=== PATIENT | female | born 1990 | race Caucasian/White ===

== ENCOUNTER 2016-09-18 18:00 | Inpatient (IN) | payer BC ==
--- NOTE | ~2016-09-18 | CR72 ---
[facility] A Service of [facility] RADIOLOGY TEXT RESULTS PATIENT: DANYA MONTOYA LOCATION: [place] [address] : [birth year] UNIT #: [id number] AGE: [address]: Sathya Winchester III, MD SEX: F ORDER DR: [id number] [facility] [address] [place], [place] [address] [id number] I MR#: [id number] #: [id number] NAME: DANYA MONTOYA : 1990 SEX: F STUDY DATE/TIME: 09/19/2016 14:27 UNIT: [facility] ROOM: [facility] STUDY DESCRIPTION: CR Chest Single View Portable Attending Physician: Sathya Winchester III, M.D. Ordering Physician: Lopez Chapin M.D. Primary Care Physician: Self Referral-Refer Use Only MEDICAL IMAGING REPORT This report is preliminary unless electronic signature is present EXAM Portable chest x-ray 09/19/2016 HISTORY Asthma. Status post appendectomy. Symptoms began today. Short of air. AP radiograph of the chest in lordotic projection presented. FINDINGS Heart and mediastinum normal in size and contour. Lung volumes normal. There is no evidence of acute infectious or inflammatory disease, pleural effusion or pneumothorax. No suspicious nodule. Visualized bowel gas pattern in upper abdomen within normal limits. No acute appearing bony abnormality. Dictated by... Robert Amin M.D. THIS IS AN ELECTRONICALLY VERIFIED REPORT Robert Amin M.D. at 09/20/2016 2:14 PM Daisy TD: 09/19/2016 16:14 JOB #: [id number] MEDICAL IMAGING REPORT Page 1 of 1 COPY
--- NOTE | ~2016-09-18 | OR ---
Unit #: [id number] #: [id number] Patient: DANYA MONTOYA [id number] [address] [address] [id number] Juan C MR#: [id number] NAME: DANYA MONTOYA ROOM: 476 Date of Procedure: 09/18/2016 Admission Date: 09/18/2016 Surgeon: Sathya Winchester III, M.D. : 1990 Attending Physician: Sathya Winchester III, M.D. Primary Care Physician: Self Referral-Refer Use Only OPERATIVE REPORT PREOPERATIVE DIAGNOSIS Ruptured appendicitis. POSTOPERATIVE DIAGNOSIS Ruptured appendicitis. PROCEDURES PERFORMED Diagnostic laparoscopy with open appendectomy. ANESTHESIA General. SPECIMENS Appendix to pathology. COMPLICATIONS None apparent. ESTIMATED BLOOD LOSS Less than 20 mL. DRAINS One flat Damon-White drain was placed. INDICATIONS FOR PROCEDURE This is a 26-year-old lady, who presented with right lower quadrant pain for 3 days and had evidence of acute appendicitis with perforation. She was extremely uncomfortable and had a white blood count of 19,000. She was transferred to [facility] for appendectomy. DESCRIPTION OF PROCEDURE After consent was obtained, the patient was brought to the operating room and placed in the supine position. General anesthetic was administered and her abdomen was prepped and draped in standard surgical fashion. I made a 1 cm incision just above the umbilicus. I elevated the fascia between 2 Adryan clamps and used a Veress needle to obtain CO2 pneumoperitoneum. Next, a 5-mm trocar was placed in that location. I then placed a second 5-mm trocar along the midline. I performed diagnostic laparoscopy and she had a lot of inflammatory changes and some signs of perforated appendicitis with oozing of enteric contents into the right lower quadrant. Because of these findings, I did elect to convert to an open procedure. I made a right lower quadrant incision and then Unit #: [id number] #: [id number] Patient: DANYA MONTOYA using a muscle-splitting technique, entered the peritoneal cavity. I was able to easily elevate the base of the cecum. The base of the cecum seen relatively unaffected by this process. There was a perforation of the appendix approximately 1 cm away from the base of the appendix. I was able to ligate the base of the appendix and divided. I then oversewed this with interrupted 2-0 silk sutures. I irrigated copiously the right lower quadrant. The appendix was sent to pathology. I placed a flat Damon-White drain in the right lower quadrant, brought it out through the suprapubic incision. After all needle, sponge, and instrument counts were correct x2 and hemostasis was excellent, I closed the peritoneum with a running 0 Vicryl suture. The anterior fascia that was then reapproximated with interrupted #1 Vicryl sutures. I then injected all the port sites with 0.25% plain Marcaine as well as the main incision. The incisions were reapproximated with a stapling device and the drain was secured to the level of skin with a 2-0 silk suture. She tolerated the procedure without any problems and returned to recovery room in stable condition. Dictated by... Sathya Winchester III, M.D. VCL/kd TD: 09/19/2016 23:24 JOB #: [id number] OPERATIVE REPORT Page 1 of 1 X Sathya Winchester III, MD PROCEDURE OPERATIVE NOTE
--- NOTE | ~2016-09-18 | DS ---
Unit #: [id number] #: [id number] Patient: DANYA MONTOYA [id number] [address] [address] [id number] I MR#: [id number] NAME: DANYA MONTOYA ROOM: 47 Age: 26 Sex: F Admission Date: 09/18/2016 : 1990 Discharge Date: 09/22/2016 Attending Physician: Sathya Winchester III, M.D. Primary Care Physician: Self Referral-Refer Use Only DISCHARGE SUMMARY DISCHARGE DIAGNOSES 1. Perforated appendicitis with pelvic abscess. 2. Asthmatic bronchitis. 3. Obesity. OPERATIVE PROCEDURE Attempted laparoscopy with open appendectomy and drainage of right lower quadrant abscess. HISTORY OF PRESENT ILLNESS AND HOSPITAL COURSE This is a 26-year-old white female who presented with right lower quadrant abdominal pain, transferred from [facility] to here with a diagnosis of perforated appendicitis with acute abscess formation periappendiceal. She was taken to surgery. Open appendectomy was performed per Dr. Winchester. The patient's right lower quadrant was drained. Successful appendectomy was performed. Postoperative course was mildly complicated by exacerbation of her asthmatic bronchitis for which Dr. Harinder Chapin was able to treat. The patient subsequently now on day number four is tolerating a regular diet. Dr. Chapin will see her before she is discharged but we have discharged her on oral antibiotics and pain medication including her home medications. We will see the patient back for followup in the office in about five to six days for staple removal. Dictated by... Heather Aguilar/jemima TD: 09/22/2016 16:38 JOB #: [id number] Unit #: [id number] #: [id number] Patient: DANYA MONTOYA DISCHARGE SUMMARY Page 1 of 1 X Jerry Dempsey MD X DISCHARGE SUMMARY
--- NOTE | ~2016-09-18 | CO ---
Unit #: [id number] #: [id number] Patient: DANYA MONTOYA [id number] [address] [place], [place] [address] [id number] I MR#: [id number] NAME: DANYA MONTOYA ROOM: 476 Age: 26 Sex: F Admission Date: 09/18/2016 : 1990 Attending Physician: Sathya Winchester III, M.D. Primary Care Physician: Self Referral-Refer Use Only Consultation Date: 09/19/2016 CONSULTATION REPORT HISTORY OF PRESENT ILLNESS Ms. Montoya is 26-year-old white female, who was admitted with right lower quadrant pain, found to have a ruptured appendix, underwent surgery with Dr. Winchester. She is noted to be somewhat more short of breath and wheezing. We were asked to see. She does have a history of asthma, but rarely uses a rescue inhaler. She is not on any inhaled steroids. She does smoke a half a pack of cigarettes a day. She has had no recent purulent sputum, cough, or congestion. Chest x-ray currently has not been done. CT scan of the abdomen and pelvis did not show anything in the lung bases. PAST MEDICAL HISTORY Significant for intrauterine device, history of kidney stones, history of asthma. PAST SURGICAL HISTORY No previous surgeries. ALLERGIES None known. MEDICATIONS None. SOCIAL HISTORY Smokes half a pack a day. Occasionally uses alcohol. No illicit drugs. FAMILY HISTORY Positive for lung cancer. REVIEW OF SYSTEMS CONSTITUTIONAL: No fever or chills. HEENT: No rhinorrhea or nasal congestion. PULMONARY: Has shortness of breath as noted, some wheezing, history of asthma. GI: As noted abdominal pain. : Has had some hematuria several years ago, evaluated by Urology and felt to be not a problem. ENDOCRINE: No polyuria or polydipsia. HEMATOLOGIC: No easy bruising or bleeding. SKIN: No rash. NEURO: No unilateral weakness or numbness. No seizures. No depression. She does have a history of loud snoring. She is somewhat fatigued during the day, but only sleeps 5-1/2 hours. Unit #: [id number] #: [id number] Patient: DANYA MONTOYA PHYSICAL EXAMINATION VITAL SIGNS: Blood pressure is 102/51, pulse is 101, respiratory rate is 18, afebrile. HEENT: Normocephalic and atraumatic. Pupils are equal, round, and reactive. Sclerae nonicteric. Nasal passages patent. Posterior pharynx crowded, Mallampati III. NECK: Supple. Mucous membranes moist. No cervical or supraclavicular lymphadenopathy. Trachea midline. LUNGS: Reveal mild expiratory wheeze bilaterally. CARDIAC: Heart sounds distant. Regular rate and rhythm. Could not appreciate murmur, rub, or gallop. ABDOMEN: Moderately tender, diminished. No bowel sounds. No hepatosplenomegaly. EXTREMITIES: Without clubbing, cyanosis, or edema. NEUROLOGIC: Awake and oriented x3. Cranial nerves grossly intact. Muscle strength symmetric. SKIN: Warm and dry. PSYCHIATRIC: Affect calm. DIAGNOSTIC STUDIES LABORATORY RESULTS: Reviewed. Glucose 132, creatinine 0.8, BUN 7, sodium 136, potassium 3.9. White count 15,600, hematocrit 36, platelet count normal. IMPRESSION 1. Asthma with some mild wheezing. 2. Ruptured appendix, status post open laparoscopy. 3. Obesity. PLAN Inhaled bronchodilators. Incentive spirometer. Check chest x-ray. SCDs for DVT prophylaxis. Further recommendations pending this. Dictated by... Lopez Chapin M.D. SCARLET/kd TD: 09/19/2016 23:49 JOB #: [id number] CONSULTATION REPORT Page 1 of 1 X Lopez Chapin MD X CONSULTATION REPORT
--- NOTE | ~2016-09-18 | HP ---
Unit #: [id number] #: [id number] Patient: DANYA MONTOYA [id number] [address] [place], [place] [address] [id number] I MR#: [id number] NAME: DANYA MONTOYA ROOM: 476 Age: 26 Sex: F Admission Date: 09/18/2016 : 1990 Attending Physician: Sathya Winchester III, M.D. Primary Care Physician: Self Referral-Refer Use Only HISTORY AND PHYSICAL CHIEF COMPLAINT Abdominal pain. HISTORY OF PRESENT ILLNESS This is a 26-year-old, lady who has had a 3-day history of right lower quadrant pain that has become progressively worse. She has had some episodes of nausea and vomiting. She denies any prior episodes of this kind of abdominal pain and denies any ill contacts or episodes of food poisoning. She initially presented to [facility] and had a CT scan, which showed perforated appendicitis. She was [facility] and apparently the plan was antibiotics with interval appendectomy down the road. The patient was writing in pain and the family was concerned about the treatment plan and contacted me because of my relationship with some other family members. She was transferred to [place] for definitive therapy. PAST SURGICAL HISTORY Significant for intrauterine device and she has a history of kidney stones. PAST MEDICAL HISTORY Negative. ALLERGIES She has no known drug allergies. MEDICATIONS She is on no medications. SOCIAL HISTORY She does occasionally smoke and uses alcohol occasionally. FAMILY HISTORY Negative for cancer. REVIEW OF SYSTEMS Negative for fevers, weight loss, or jaundice and is otherwise as above. PHYSICAL EXAMINATION VITAL SIGNS: Vitals were stable with the exception of a heart rate of 114. GENERAL APPEARANCE: She appears extremely uncomfortable. HEENT: Pupils are equal and reactive to light and accommodation and her extraocular muscles are intact. NECK: Without masses or bruits. LUNGS: Show good breath sounds bilaterally with equal air exchange. Unit #: [id number] #: [id number] Patient: DANYA MONTOYA CARDIAC: Shows regular rate and rhythm without murmur. ABDOMEN: Soft with 2-3+ tenderness in the right lower quadrant. EXTREMITIES: Without edema or cyanosis. NEUROLOGIC: She is alert and oriented. There are no focal deficits. DIAGNOSTIC STUDIES LABORATORY: White blood count is 19,000. IMAGING: CT scan, again, showed ruptured appendicitis. OVERALL IMPRESSION This is a 26-year-old lady with ruptured appendicitis. I feel like she needs to have diagnostic laparoscopy with possible open appendectomy. Also discussed the possibility of an ileocolic resection in case the appendix is completely blown out at the base of the cecum. We also discussed the risks of postoperative abscess and possible wound infection. She understands those and wishes to proceed. Dictated by Sathya Winchester III, M.D. VCL/pc TD: 09/19/2016 07:43 JOB #: [id number] HISTORY AND PHYSICAL Page 1 of 1 X Sathya Winchester III, MD X HISTORY AND PHYSICAL
[~2016-09-18 18:00] MED LIST: ALBUTEROL17 GM INH; ANTIBIOTIC; NEURONTIN PO; Z PACK
[2016-09-19 03:34] LABS: BASOPHIL% 0.1 % (0-2.5); HEMOGLOBIN 11.7 gm/dL (12.0-16.0); LYMPHOCYTE# 0.7 X10e3 (1.0-3.5); LYMPHOCYTE% 4.3 % (17.0-45.0); MEAN CELL VOLUME 79.8 FL (83-96); MEAN CORPUSCULAR HEMOGLOBIN 25.9 PG (28-34); MEAN CORPUSCULAR HGB CONC 32.5 g/dL (30-36); MEAN PLATELET VOLUME 9.5 FL (6.5-11.5); MONOCYTE# 0.8 X10e3 (0-1.0); MONOCYTE% 5.3 % (3.0-12.0); NEUTROPHIL# 14.1 X10e3 (1.5-7.1); NEUTROPHIL% 90.3 % (40-75); PLATELET COUNT 247 X10e3 (140-420); RED BLOOD COUNT 4.51 X10e (3.90-5.30); RED CELL DISTRIBUTION WIDTH 13.8 % (11.0-15.5); WHITE BLOOD COUNT 15.6 X10e3 (4.0-10.5)
[2016-09-19 03:35] LABS: DIFF IND YES
[2016-09-19 03:53] LABS: BUN/CREATININE RATIO 8.75; CALCIUM SERUM 8.1 mg/dL (8.4-10.2); CREATININE SERUM 0.8 mg/dL (0.6-1.4); GLOM FILT RATE Estimated 100.4 mL/min (>60); POTASSIUM 3.9 mmol/L (3.5-5.1)
[2016-09-19 04:25] LABS: PLATELET ESTIMATE NORMAL (NORMAL); RBC NORMAL YES
[2016-09-20 03:23] LABS: HEMATOCRIT 31.2 % (35.0-45.0); HEMOGLOBIN 10.4 gm/dL (12.0-16.0); MEAN CELL VOLUME 79.5 FL (83-96); MEAN CORPUSCULAR HEMOGLOBIN 26.5 PG (28-34); MEAN CORPUSCULAR HGB CONC 33.3 g/dL (30-36); MEAN PLATELET VOLUME 9.2 FL (6.5-11.5); RED BLOOD COUNT 3.93 X10e (3.90-5.30); RED CELL DISTRIBUTION WIDTH 13.6 % (11.0-15.5); WHITE BLOOD COUNT 10.9 X10e3 (4.0-10.5)
[2016-09-20 03:48] LABS: CALCIUM SERUM 8.1 mg/dL (8.4-10.2); CREATININE SERUM 0.6 mg/dL (0.6-1.4); POTASSIUM 3.2 mmol/L (3.5-5.1)
[2016-09-21 15:38] LABS: BASOPHIL% 0.2 % (0-2.5); EOSINOPHIL# 0.1 X10e3 (0-0.7); EOSINOPHIL% 0.5 % (0.0-7.0); HEMATOCRIT 30.9 % (35.0-45.0); HEMOGLOBIN 8.7 gm/dL (12.0-16.0); LYMPHOCYTE# 0.9 X10e3 (1.0-3.5); LYMPHOCYTE% 6.8 % (17.0-45.0); MEAN CELL VOLUME 80.8 FL (83-96); MEAN CORPUSCULAR HEMOGLOBIN 22.6 PG (28-34); MEAN PLATELET VOLUME 9.5 FL (6.5-11.5); MONOCYTE# 0.8 X10e3 (0-1.0); MONOCYTE% 5.6 % (3.0-12.0); NEUTROPHIL# 11.8 X10e3 (1.5-7.1); NEUTROPHIL% 86.9 % (40-75); PLATELET COUNT 292 X10e3 (140-420); RED BLOOD COUNT 3.83 X10e (3.90-5.30); WHITE BLOOD COUNT 13.6 X10e3 (4.0-10.5)
[2016-09-21 15:40] LABS: DIFF IND NO
[2016-09-21 15:44] LABS: BUN/CREATININE RATIO 8.33; CALCIUM SERUM 8.2 mg/dL (8.4-10.2); CREATININE SERUM 0.6 mg/dL (0.6-1.4); POTASSIUM 3.6 mmol/L (3.5-5.1)
[2016-09-22 03:03] LABS: BASOPHIL# 0.1 X10e3 (0-0.3); BASOPHIL% 0.8 % (0-2.5); EOSINOPHIL# 0.1 X10e3 (0-0.7); EOSINOPHIL% 0.8 % (0.0-7.0); HEMATOCRIT 31.5 % (35.0-45.0); HEMOGLOBIN 10.4 gm/dL (12.0-16.0); LYMPHOCYTE# 1.1 X10e3 (1.0-3.5); LYMPHOCYTE% 10.9 % (17.0-45.0); MEAN CELL VOLUME 78.4 FL (83-96); MEAN CORPUSCULAR HEMOGLOBIN 25.8 PG (28-34); MEAN CORPUSCULAR HGB CONC 32.9 g/dL (30-36); MONOCYTE# 0.7 X10e3 (0-1.0); MONOCYTE% 6.9 % (3.0-12.0); NEUTROPHIL# 7.9 X10e3 (1.5-7.1); NEUTROPHIL% 80.6 % (40-75); PLATELET COUNT 259 X10e3 (140-420); RED BLOOD COUNT 4.02 X10e (3.90-5.30); RED CELL DISTRIBUTION WIDTH 14.1 % (11.0-15.5); WHITE BLOOD COUNT 9.8 X10e3 (4.0-10.5)
[2016-09-22 03:04] LABS: DIFF IND NO
[2016-09-22 03:09] LABS: BUN/CREATININE RATIO 8.33; CALCIUM SERUM 7.9 mg/dL (8.4-10.2); CREATININE SERUM 0.6 mg/dL (0.6-1.4); MAGNESIUM 2.2 mg/dL (1.6-3.0)
[2016-09-23 03:37] LABS: POTASSIUM 3.7 mmol/L (3.5-5.1)
[2016-09-23] MEDS ORDERED: PROAIR HFA8.5 GM INH (07:42)
[2016-09-23] MEDS ORDERED: LORTAB 7.5-3251 EACH PO (07:44)
[2016-09-23] MEDS ORDERED: AUGMENTIN PO (07:45)
== END 2016-09-23 11:07 | disposition home or self-care (01) | DRG 339 ==
LOC: C4C 18:00
PROVIDERS: Internal Medicine; Surgery
PROC: 0DTJ0ZZ Resection of Appendix, Open Approach (ICD-10-PCS; principal; 2016-09-18 17:00)
PROC: 0DJD4ZZ Inspection of Lower Intestinal Tract, Percutaneous Endoscopic Approach (ICD-10-PCS; 2016-09-18 17:00)
DX: K35.3 Acute appendicitis with localized peritonitis (principal); J45.901 Unspecified asthma with (acute) exacerbation; Z87.442 Personal history of urinary calculi; E66.9 Obesity, unspecified; E87.6 Hypokalemia; Z68.30 Body mass index [BMI] 30.0-30.9, adult
CPT/HCPCS: 71010; 80048; 82947; 83735; 84132; 85025; 85027; 88304; 94640; 94760; J0330; J1100; J1650; J1885; J2250; J2270; J2405; J2543; J2550; J2710; J3010; J3475

== ENCOUNTER 2016-10-15 00:49 | Emergency (ER) | payer BC ==
--- NOTE | ~2016-10-15 | CR63 ---
[facility] A Service of [facility] RADIOLOGY TEXT RESULTS PATIENT: DANYA MONTOYA LOCATION: [facility] : [birth year] UNIT #: [id number] AGE: [address]: Walter Avila MD SEX: F ORDER DR: [id number] [facility] [address] [facility]. [place], [place] [address] [id number] MR#: [id number] Acc #: [id number] NAME: DANYA MONTOYA : 1990 SEX: F STUDY DATE/TIME: 10/15/2016 2:36 UNIT: [facility] ROOM: STUDY DESCRIPTION: CR Chest 2 View Attending Physician: Walter Avila M.D. Ordering Physician: Walter Avila M.D. Primary Care Physician: Self Referral-Refer Use Only MEDICAL IMAGING REPORT This report is preliminary unless electronic signature is present EXAM Two-view chest INDICATION Cough and fever for the past 3 days. PROCEDURE Frontal and lateral views of the chest COMPARISON 09/19/2016 FINDINGS Heart size is within normal limits. Lungs are clear. No pleural fluid. No pneumothorax. IMPRESSION No active process. Dictated by... Subhash Mullen M.D. THIS IS AN ELECTRONICALLY VERIFIED REPORT Subhash Mullen M.D. at 10/15/2016 9:52 PM Lee Ann TD: 10/15/2016 08:52 JOB #: [id number] MEDICAL IMAGING REPORT Page 1 of 1 COPY
[~2016-10-15 00:49] MED LIST changes: -ACETAMINOPHEN325 MG PO
[2016-10-15 02:38] LABS: URINE SOURCE CLEAN CATCH
[2016-10-15 02:44] LABS: URINE APPEARANCE CLEAR; URINE BILIRUBIN NEG (NEG); URINE BLOOD TRACE (NEG); URINE COLOR DK YELLOW; URINE GLUCOSE NEG (NEG); URINE KETONE TRACE (NEG); URINE LEUKOCYTE ESTERASE NEG (NEG); URINE NITRATE NEG (NEG); URINE PH 5.5 (5-8); URINE PROTEIN TRACE (NEG); URINE SPECIFIC GRAVITY 1.024 (1.003-1.035)
[2016-10-15 02:46] LABS: URINE BACTERIA AUWI NEG (NEGATIVE); URINE SQUAMOUS EPITHELIAL CELL NONE SEEN /[HPF]; UWBCS1 AUWI 0-2 (0-5)
[2016-10-15 02:47] LABS: CULTURE INDICATED? NO
== END 2016-10-15 03:23 | disposition home or self-care (01) ==
LOC: CED 00:49
PROVIDERS: Emergency Medicine
DX: J06.9 Acute upper respiratory infection, unspecified (principal)
CPT/HCPCS: 71020; 81003; 84703; 99283

== ENCOUNTER → 2016-10-15 | Outpatient (CLI) | payer BC ==
[~2016-10-15] MED LIST changes: +ACETAMINOPHEN325 MG PO; +AUGMENTIN PO; +LORTAB 7.5-3251 EACH PO; +PROAIR HFA8.5 GM INH
--- NOTE | ~2016-10-15 | CT2 ---
[facility] A Service of [facility] & [facility] RADIOLOGY TEXT RESULTS PATIENT: DANYA MONTOYA LOCATION: [facility] : [birth year] UNIT #: [id number] AGE: [address]: Sathya Winchester III, MD SEX: F ORDER DR: [id number] [facility] [address] [facility] [place], [place] [address] [id number] O MR#: [id number] Acc #: [id number] NAME: DANYA MONTOYA : 1990 SEX: F STUDY DATE/TIME: 10/15/2016 17:08 UNIT: [facility] ROOM: STUDY DESCRIPTION: CT Abd and Pelv W Cont Attending Physician: Sathya Winchester III, M.D. Referring Physician: Sathya Winchester III, M.D. Ordering Physician: Sathya Winchester III, M.D. Primary Care Physician: No Primary Care Physician MEDICAL IMAGING REPORT This report is preliminary unless electronic signature is present EXAM CT scan of the abdomen and pelvis with contrast, 10/15/16. HISTORY Nausea and fever, status post open appendectomy 09/18/16. Abdominal pain and discomfort extending across lower abdomen since 09/18/16. TECHNIQUE Spiral CT was performed through the abdomen and pelvis following oral and intravenous contrast administration. This CT exam was performed with one or more of the following radiation dose reduction techniques: automatic exposure control, adjustment of mA and/or kV according to patient size, and iterative reconstruction. FINDINGS ABDOMEN: The liver, spleen, pancreas, adrenal glands are normal. There are multiple fat-containing gallstones within the gallbladder lumen. There are nonobstructing renal stones bilaterally. PELVIS FINDINGS: There are postsurgical changes of recent appendectomy with residual postsurgical and inflammatory changes surrounding the cecum. Minimal thickening of the wall of the cecum is noted. The gut is otherwise unremarkable. There is however a 5.6 cm x 3.4 cm rim-enhancing fluid collection located in the pelvic cholecystitis. This does not contain gas but is concerning for abscess. Clinical correlation is recommended. There is a 2.1 cm presumed cystic lesion on the left ovary. This would be better evaluated with pelvic ultrasound. Images of the lung bases are normal. IMPRESSION 1. Postsurgical changes in the right lower quadrant of recent appendectomy. 2. There is a new 5.6 cm x 3.4 cm rim-enhancing fluid collection located [facility] A Service of [facility] & [facility] RADIOLOGY TEXT RESULTS PATIENT: DANYA MONTOYA LOCATION: [facility] : [birth year] UNIT #: [id number] AGE: [address]: Sathya Winchester III, MD SEX: F ORDER DR: in the pelvic cul-de-sac. The collection does not contain gas but is concerning for abscess. Clinical correlation is recommended. 3. 2.1 cm cystic lesion on the left ovary. Consider correlation with pelvic ultrasound. 4. Cholelithiasis. 5. Multiple nonobstructing renal stones bilaterally. STAT * RESULT Dictated by... Jared Yeboah M.D. THIS IS AN ELECTRONICALLY VERIFIED REPORT Jared Yeboah M.D. at 10/17/2016 8:20 AM PILAR/charbel TD: 10/15/2016 18:01 JOB #: [id number] MEDICAL IMAGING REPORT Page 1 of 1 COPY
[2016-10-15 16:10] LABS: HEMATOCRIT 36.6 % (35.0-45.0); HEMOGLOBIN 11.9 gm/dL (12.0-16.0); MEAN CORPUSCULAR HEMOGLOBIN 24.9 PG (28-34); MEAN CORPUSCULAR HGB CONC 32.4 g/dL (30-36); MEAN PLATELET VOLUME 8.2 FL (6.5-11.5); RED BLOOD COUNT 4.76 X10e (3.90-5.30); RED CELL DISTRIBUTION WIDTH 14.4 % (11.0-15.5); WHITE BLOOD COUNT 11.5 X10e3 (4.0-10.5)
== END | disposition home or self-care (01) ==
LOC: CCAT 15:00
PROVIDERS: Surgery
DX: R11.0 Nausea (principal); R50.9 Fever, unspecified; N83.8 Other noninflammatory disorders of ovary, fallopian tube and broad ligament; K80.20 Calculus of gallbladder without cholecystitis without obstruction; N20.0 Calculus of kidney; Z90.49 Acquired absence of other specified parts of digestive tract
CPT/HCPCS: 36415; 74177; 85027; Q9967

== ENCOUNTER 2016-10-16 08:00 | Inpatient (IN) | payer BC ==
--- NOTE | ~2016-10-16 | CT4 ---
[facility] A Service of [facility] RADIOLOGY TEXT RESULTS PATIENT: DANYA MONTOYA LOCATION: [facility] [id number] : [birth year] UNIT #: [id number] AGE: [address]: Sathya Winchester III, MD SEX: F ORDER DR: [id number] [facility] [address] [facility]. [place], [place] [address] [id number] I MR#: [id number] Acc #: [id number] NAME: DANYA MONTOYA : 1990 SEX: F STUDY DATE/TIME: 10/18/2016 13:09 UNIT: [facility] ROOM: [facility] STUDY DESCRIPTION: CT Abd and Pelv Wo Cont Attending Physician: Sathya Winchester III, M.D. Ordering Physician: Walter Harris M.D. Primary Care Physician: No Primary Care Physician MEDICAL IMAGING REPORT This report is preliminary unless electronic signature is present EXAM CT of the abdomen and pelvis without contrast. INDICATIONS Follow up abscess drain. Reevaluate abscess. Patient no longer has abdominal pain. TECHNIQUE CT of the abdomen and pelvis was performed without contrast. Coronal and sagittal reformatted images were obtained. This CT exam was performed with one or more of the following radiation dose reduction techniques: automatic exposure control, adjustment of mA and/or kV according to patient size, and iterative reconstruction. COMPARISON Comparison with 10/15/2016. FINDINGS The lung bases are clear. The liver is unremarkable. Cholelithiasis. The spleen is unremarkable. Punctate nonobstructing kidney stones bilaterally. The adrenal glands are unremarkable. The pancreas is unremarkable. No free fluid. PELVIS: There are postop changes from appendectomy are again noted. Stable stranding and prominent lymph nodes in the periappendiceal region. Interval placement of a pigtail drain into the pelvic cul-de-sac. No residual abscess. Remainder unremarkable. Bone windows are unremarkable. IMPRESSION Interval placement of a pigtail drain into the patient's abscess within the pelvic cul-de-sac. There is no evidence for any residual abscess. [facility] A Service of [facility] RADIOLOGY TEXT RESULTS PATIENT: DANYA MONTOYA LOCATION: [place] [address] : [birth year] UNIT #: [id number] AGE: [address]: Sathya Winchester III, MD SEX: F ORDER DR: Dictated by... Avery Leach M.D. THIS IS AN ELECTRONICALLY VERIFIED REPORT Avery Leach M.D. at 10/19/2016 5:14 PM PATRICIA/charbel TD: 10/18/2016 17:39 JOB #: [id number] MEDICAL IMAGING REPORT Page 1 of 1 COPY
--- NOTE | ~2016-10-16 | CT134 ---
[facility] A Service of [facility] RADIOLOGY TEXT RESULTS PATIENT: DANYA MONTOYA LOCATION: [facility] [id number] : [birth year] UNIT #: [id number] AGE: [address]: Sathya Winchester III, MD SEX: F ORDER DR: [id number] [facility] [address] [facility]. [place], [place] [address] [id number] I MR#: [id number] Acc #: [id number] NAME: DANYA MONTOYA : 1990 SEX: F STUDY DATE/TIME: 10/16/2016 15:24 UNIT: [facility] ROOM: [facility] STUDY DESCRIPTION: CT Guide Attending Physician: Sathya Winchester III, M.D. Ordering Physician: Sathya Winchester III, M.D. Primary Care Physician: No Primary Care Physician MEDICAL IMAGING REPORT This report is preliminary unless electronic signature is present PROCEDURE CT-guided pelvic abscess drain placement. INDICATION 26-year female with recent appendectomy. She presented with fever and a CT scan was performed demonstrating a small peripherally enhancing collection in the deep pelvis suspicious for abscess. MEDICATIONS IV Versed and fentanyl were utilized for conscious sedation. Approximately 50 minutes of sedation time was monitored by appropriately credentialed radiology nursing staff. Risks, benefits, and alternatives of the procedure were discussed with the patient and informed consent was obtained. In the procedure room, a time-out was performed confirming correct patient and procedure. All elements of maximum sterile-barrier technique utilized according to guidelines appropriate for the procedure. TECHNIQUE/FINDINGS Patient was placed in the prone position on the CT scanner and a preliminary CT scan was performed. This identified the small collection in the cul-de-sac consistent with the collection seen on the CT scan from 10/15/2016. The overlying skin was prepped and draped in the usual sterile fashion. 1% lidocaine was utilized to anesthetize the skin and overlying subcutaneous tissues. Next under CT guidance, a 17-gauge needle was advanced into the collection. The return of grossly purulent fluid. A sample was sent for culture. Next, through this access, a superstiff guidewire was advanced through the needle. The needle was removed and the tract was serially dilated to 8-Estonian. Next, an 8-Estonian pigtail catheter was advanced over the guidewire and positioned within the collection. Approximately 12 mL of purulent fluid was further aspirated. The catheter was sutured into place and hooked to gravity bag drainage. [facility] A Service of [facility] RADIOLOGY TEXT RESULTS PATIENT: DANYA MONTOYA LOCATION: [place] [address] : [birth year] UNIT #: [id number] AGE: [address]: Sathya Winchester III, MD SEX: F ORDER DR: The patient tolerated the procedure well without immediate complications. IMPRESSION Technically successful CT-guided pelvic abscess drain placement. Dictated by... Avery Leach M.D. THIS IS AN ELECTRONICALLY VERIFIED REPORT Avery Leach M.D. at 10/17/2016 7:16 AM PATRICIA/charbel TD: 10/17/2016 00:26 JOB #: [id number] MEDICAL IMAGING REPORT Page 1 of 1 COPY
[2016-10-16 13:57] LABS: HEMATOCRIT 36.4 % (35.0-45.0); HEMOGLOBIN 11.7 gm/dL (12.0-16.0); MEAN CELL VOLUME 76.2 FL (83-96); MEAN CORPUSCULAR HEMOGLOBIN 24.5 PG (28-34); MEAN CORPUSCULAR HGB CONC 32.2 g/dL (30-36); RED BLOOD COUNT 4.78 X10e (3.90-5.30); WHITE BLOOD COUNT 11.2 X10e3 (4.0-10.5)
[2016-10-16 14:13] LABS: INR 1.1; PARTIAL THROMBOPLASTIN TIME 30.6 SECONDS (23.5-31.3); PROTHROMBIN TIME (PATIENT) 11.3 SECONDS (9.6-11.5)
[2016-10-17 03:53] LABS: HEMOGLOBIN 10.6 gm/dL (12.0-16.0); MEAN CELL VOLUME 76.7 FL (83-96); MEAN CORPUSCULAR HEMOGLOBIN 25.4 PG (28-34); MEAN CORPUSCULAR HGB CONC 33.2 g/dL (30-36); MEAN PLATELET VOLUME 8.2 FL (6.5-11.5); RED BLOOD COUNT 4.18 X10e (3.90-5.30); WHITE BLOOD COUNT 8.2 X10e3 (4.0-10.5)
[2016-10-17 04:26] LABS: BUN/CREATININE RATIO 12.85; CALCIUM SERUM 8.9 mg/dL (8.4-10.2); CREATININE SERUM 0.7 mg/dL (0.6-1.4); GLOM FILT RATE Estimated 117.9 mL/min (>60); POTASSIUM 3.7 mmol/L (3.5-5.1)
[2016-10-18] MEDS ORDERED: AUGMENTIN PO (16:27)
[2016-10-18] MEDS ORDERED: ACETAMINOPHEN325 MG PO (16:28)
[2016-10-18] MEDS ORDERED: LORTAB 7.5-3251 EACH PO (16:29)
== END 2016-10-18 16:56 | disposition home or self-care (01) | DRG 862 ==
LOC: C4C 08:00
PROVIDERS: Surgery
PROC: 0J9830Z Drainage of Abdomen Subcutaneous Tissue and Fascia with Drainage Device, Percutaneous Approach (ICD-10-PCS; principal; 2016-10-16)
DX: T81.4XXA Infection following a procedure, initial encounter (principal); K65.1 Peritoneal abscess; E66.9 Obesity, unspecified; Z68.34 Body mass index [BMI] 34.0-34.9, adult
CPT/HCPCS: 74176; 77012; 80048; 85027; 85610; 85730; 87070; 87076; 87077; 87186; 87205; J2250; J2270; J2543; J2550; J3010